=== PATIENT | female | born 2000 | race Hispanic/Latino ===

== ENCOUNTER 2024-11-24 18:07 | Emergency (ER) | payer SELFPAY ==
[~2024-11-24] VITALS: Ht 165.1 cm; Wt 46.4 kg
[2024-11-24 18:20] VITALS: BP 109/64; TEMP 98.7; O2SAT 98
== END 2024-11-25 01:00 | disposition left against medical advice (07) ==
LOC: EDBD 18:07 → M ED 18:07
DX: Z53.21 Procedure and treatment not carried out due to patient leaving prior to being seen by health care provider (principal)